=== PATIENT | male | born 1960 | race Caucasian/White ===

== ENCOUNTER 2016-12-23 15:16 | Inpatient (IN) | payer SELFPAY ==
[~2016-12-23] VITALS: Ht 175.3 cm; Wt 66.9 kg
[2016-12-23] MEDS: NITROGLYCERIN SUBLINGUAL 0.4 MG BOTTLE OF 25. SL PRN ×2 (16:26→16:41)
--- NOTE | 2016-12-23 16:27 | PHYS DOC ---
Past Medical History Past Medical History: Anxiety, COPD, Liver Disease, Seizure, Other Additional Past Medical Histor: IV drug user Past Surgical History: Other Additional Past Surgical Histo: hernia, carpal tunnel, facial - mult plates L face Additional Information: 5-6 per day Alcohol Use: Sober Additional Information: x30 days Drug Use: None Adult General Chief Complaint Chief Complaint: CHEST PAIN HPI HPI Patient is a 56 year old male who presents with chest pain and SOB. Patient reports for the past 3 days he has been having L side chest pain that he describes as "like someone is punching me" and like "something sitting on my chest". He also reports SOB and says recently he in unable to walk any significant distance without stopping to rest. Patient says he ran out of both his pain meds and "heart pills" one week ago, but does not know exactly what medication he was taking. He denies prior cardiac disease other than a "valve problem". He was given 4 baby ASA en route by EMS. Has not taken anything for pain. No prior similar episodes. He is a long-time smoker. Review of Systems Review of Systems Constitutional: Denies fever or chills Eyes: Denies change in visual acuity or eye pain HENT: Denies nasal congestion or sore throat Respiratory: Shortness of breath Cardiovascular: L side chest pain/pressure, decreased exercise tolerance GI: Denies abdominal pain, nausea, vomiting, bloody stools or diarrhea : Denies dysuria or hematuria Musculoskeletal: Denies back pain or joint pain Integument: Denies rash or skin lesions Neurologic: Denies headache, focal weakness or sensory changes Current Medications Current Medications Current Medications Medications (Trade) Dose Ordered Sig/Arcadio Start Time Stop Time Status Last Admin Dose Admin Acetaminophen (Tylenol) 650 mg PRN Q6HRS PRN 12/23/16 18:45 Morphine Sulfate 2 mg PRN Q2HR PRN 12/23/16 18:45 12/24/16 18:44 Nitroglycerin (Nitrostat) 0.4 mg PRN Q5MIN PRN 12/23/16 15:45 12/24/16 15:44 12/23/16 16:41 0.4 MG Ondansetron HCl (Zofran) 4 mg PRN Q6HRS PRN 12/23/16 18:45 Allergies Allergies Allergies Coded Allergies Type Severity Reaction Last Updated Verified Penicillins Allergy Intermediate 12/23/16 Yes codeine Allergy Intermediate 12/23/16 Yes Physical Exam Physical Exam Constitutional: Well developed, well nourished, no acute distress, non-toxic appearance HENT: Normocephalic, atraumatic, bilateral external ears normal Eyes: EOMI, conjunctiva normal, no discharge Neck: Normal range of motion, no stridor Cardiovascular: Heart rate normal, regular rhythm, no murmur Lungs & Thorax: Bilateral breath sounds clear to auscultation Abdomen: Bowel sounds normal, soft, non-distended, no TTP Skin: Warm, dry, no erythema, no rash Extremities: No obvious deformity, no edema Neurologic: Alert and oriented X 3, no gross deficits noted Current Patient Data Vital Signs Vital Signs Date Time Temp Pulse Resp B/P Pulse Ox O2 Delivery O2 Flow Rate FiO2 12/23/16 18:57 Room Air 12/23/16 18:52 84 21 127/84 98 12/23/16 15:30 98.4 98.4 Lab Values Laboratory Tests Test 12/23/16 16:20 12/23/16 17:25 White Blood Count 11.9x10^3/uL (4.0-11.0) H Red Blood Count 4.68x10^6/uL (4.30-5.70) Hemoglobin 14.8g/dL (13.0-17.5) Hematocrit 44.4% (39.0-53.0) Mean Corpuscular Volume 95fL (79-100) Mean Corpuscular Hemoglobin 32pg (25-35) Mean Corpuscular Hemoglobin Concent 33g/dL (31-37) Red Cell Distribution Width 12.8% (11.5-14.5) Platelet Count 157x10^3/uL (140-400) Neutrophils (%) (Auto) 62% (31-73) Lymphocytes (%) (Auto) 12% (24-48) L Monocytes (%) (Auto) 14% (0-9) H Eosinophils (%) (Auto) 12% (0-3) H Basophils (%) (Auto) 1% (0-3) Neutrophils # (Auto) 7.3x10^3uL (1.8-7.7) Lymphocytes # (Auto) 1.4x10^3/uL (1.0-4.8) Monocytes # (Auto) 1.6x10^3/uL (0.0-1.1) H Eosinophils # (Auto) 1.5x10^3/uL (0.0-0.7) H Basophils # (Auto) 0.1x10^3/uL (0.0-0.2) Sodium Level 129mmol/L (136-145) L Potassium Level 3.9mmol/L (3.5-5.1) Chloride Level 90mmol/L (98-107) L Carbon Dioxide Level 31mmol/L (21-32) Anion Gap 8 (6-14) Blood Urea Nitrogen 7mg/dL (8-26) L Creatinine 0.6mg/dL (0.7-1.3) L Estimated GFR (Cockcroft-Gault) 139.4 Glucose Level 115mg/dL (70-99) H Calcium Level 9.2mg/dL (8.5-10.1) Creatine Kinase 30U/L (39-308) L Creatine Kinase MB (Mass) < 0.5ng/mL (0.0-3.6) Creatine Kinase MB Relative Index 1.7% (0-4) Troponin I Quantitative < 0.017ng/mL (0.000-0.055) GK-Oez-C-Type Natriuretic Peptide 65pg/mL (0-124) Urine Opiates Screen Neg (NEG) Urine Methadone Screen Neg (NEG) Urine Barbiturates Neg (NEG) Urine Phencyclidine Screen Neg (NEG) Urine Amphetamine/Methamphetamine Neg (NEG) Urine Benzodiazepines Screen Neg (NEG) Urine Cocaine Screen Neg (NEG) Urine Cannabinoids Screen Neg (NEG) Urine Ethyl Alcohol Neg (NEG) Laboratory Tests 12/23/16 16:20 Laboratory Tests 12/23/16 16:20 EKG EKG EKG (my read): sinus rhythm, rate 96, normal axis, intervals wnl, no acute ischemic changes Radiology/Procedures Radiology/Procedures CXR: Impression: Radiographically normal chest. Course & Med Decision Making Course & Med Decision Making Pertinent Labs and Imaging studies reviewed. (See chart for details) Patient is 56 year old male who presents with chest pain, SOB. Symptoms concerning for ACS. Will check EKG, CXR, labs. Already given ASA by EMS, will give nitro for pain relief (with subsequent improvement in pain). EKG ok per my read. CXR results as above. Labs notable for hyponatremia, hypochloremia, mild leukocytosis. Troponin wnl. Discussed results with patient. Discussed with Dr. Flores, will admit under her care for further evaluation and treatment. Dragon Disclaimer Dragon Disclaimer This electronic medical record was generated, in whole or in part, using a voice recognition dictation system. Departure Departure Impression: Primary Impression: Chest pain Additional Impressions: SOB (shortness of breath) Hyponatremia Disposition: 09 ADMITTED INPATIENT Admitting Physician: Arnaud Flores Condition: STABLE Problem Qualifiers BILLY GONZALEZ MD Dec 23, 2016 16:27
[2016-12-23 16:29] LABS: BASO # 0.1 x10^3/uL (0.0-0.2); BASO % 1 % (0-3); EOS % 12 % (0-3); HEMATOCRIT 44.4 % (39.0-53.0); HEMOGLOBIN 14.8 g/dL (13.0-17.5); LYMPH # 1.4 x10^3/uL (1.0-4.8); LYMPH % 12 % (24-48); MEAN CORPUSCULAR HEMOGLOBIN 32 pg (25-35); MEAN CORPUSCULAR HGB CONC 33 g/dL (31-37); MEAN CORPUSCULAR VOLUME 95 fL (79-100); MONO % 14 % (0-9); NEUT % 62 % (31-73); PLATELET COUNT 157 x10^3/uL (140-400); RED BLOOD COUNT 4.68 x10^6/uL (4.30-5.70); RED CELL DISTRIBUTION WIDTH 12.8 % (11.5-14.5); WHITE BLOOD COUNT 11.9 x10^3/uL (4.0-11.0)
[2016-12-23 16:38] LABS: CALCIUM 9.2 mg/dL (8.5-10.1); CREATININE 0.6 mg/dL (0.7-1.3); GFR 139.4; POTASSIUM 3.9 mmol/L (3.5-5.1)
--- NOTE | 2016-12-23 16:44 | RAD ---
Exam performed: 2 views of the chest. Indication: chest pain, SOB, r/o acute process Date of Service:12/23/2016 2:00 AM . Comparison : None available. Findings: PA and lateral radiographs of the chest reveal a normal cardiomediastinal contour. The lungs are clear. No pleural fluid is seen. The visualized osseous structures are unremarkable. Impression: Radiographically normal chest.
[2016-12-23] MEDS ORDERED: ACETAMINOPHEN 500 MG TABLET PO ONE (16:45)
[2016-12-23] MEDS ORDERED: ONDANSETRON PF 4 MG/2 ML VIAL. IV PRN ×2 (18:45)
[2016-12-23] MEDS ORDERED: ACETAMINOPHEN 325 MG TABLET. PO PRN ×2 (18:45)
[2016-12-23] MEDS ORDERED: MORPHINE SULFATE 2 MG/ML DISP.SYRIN. IV PRN (18:45)
--- NOTE | 2016-12-23 18:58 | PDOC1 ---
History and Physical Date of Admission Date of Admission 12/23/16 Identification/Chief Complaint Chief Complaint chest pain Problems: Source Source: Chart review, Patient History of Present Illness History of Present Illness HPI HPI Patient is a 56 year old male who presents with chest pain for a few days. poor historian. He usually goes to [facility]. He said about 1 month ago, he was admitted for sob, chest pain and was found left rib fx. He also said he might had some CA before wo stents. He said this chest pain is different, gets worse, sharp. radiating to left arm, with diaphoresis, sob, no N/V, no fever, chills, no abd pain. Patient says he ran out of both his pain meds and "heart pills" one week ago, but does not know exactly what medication he was taking. He was given 4 baby ASA en route by EMS. Has not taken anything for pain. No prior similar episodes. He is a long-time smoker, quit for 1month. also had seizure 2 weeks ago. Past Medical History Past Medical History Anxiety, COPD, Liver Disease, Seizure, Other Additional Past Medical Histor: IV drug user Past Surgical History: Other Past Surgical History Past Surgical History hernia, carpal tunnel, facial - mult plates L face Family History Family History: Hypertension Social History Smoke: Quit ALCOHOL: social Drugs: None Current Problem List Problem List Problems Medical Problems: (1) Chest pain Status: Acute (2) Hyponatremia Status: Acute (3) SOB (shortness of breath) Status: Acute Current Medications Current Medications Current Medications Medications (Trade) Dose Ordered Sig/Arcadio Start Time Stop Time Status Last Admin Dose Admin Acetaminophen (Tylenol) 650 mg PRN Q4HRS PRN 12/23/16 18:45 12/24/16 18:44 UNV Morphine Sulfate 4 mg 1X ONCE 12/23/16 18:45 12/23/16 18:46 UNV Nitroglycerin (Nitrostat) 0.4 mg PRN Q5MIN PRN 12/23/16 15:45 12/24/16 15:44 12/23/16 16:41 0.4 MG Ondansetron HCl (Zofran) 4 mg PRN Q8HRS PRN 12/23/16 18:45 12/24/16 18:44 UNV Allergies Allergies Allergies Coded Allergies Type Severity Reaction Last Updated Verified Penicillins Allergy Intermediate 12/23/16 Yes codeine Allergy Intermediate 12/23/16 Yes ROS Review of System CONSTITUTIONAL: No fever or chills EYES: No recent changes SKIN: No rash or itching CARDIOVASCULAR: No chest pain, syncope, palpitations, or edema RESPIRATORY: No SOB or cough GASTROINTESTINAL: No nausea, vomiting or abdominal pain NEUROLOGICAL: No headaches or weakness ENDOCRINE: No cold or heat intolerance GENITOURINARY: No urgency or frequency of urination MUSCULOSKELETAL: No back pain or joint pain LYMPHATICS: No enlarged lymph nodes PSYCHIATRIC: No anxiety or depression Physical Exam Physical Exam GEN.: No apparent distress. Alert and oriented. poor hygiene. HEENT: Head is normocephalic, atraumatic NECK: Supple. LUNGS: severe decreased bs. left chest wall tenderness, severe. HEART: RRR, S1, S2 present. Peripheral pulses intact ABDOMEN: Soft, nontender. Positive bowel sounds. EXTREMITIES: Without any cyanosis. NEUROLOGIC: Normal speech, normal tone PSYCHIATRIC: Normal affect, normal mood. SKIN: No ulcerations Vitals Vitals Vital Signs Date Time Temp Pulse Resp B/P Pulse Ox O2 Delivery O2 Flow Rate FiO2 12/23/16 16:41 104 146/95 12/23/16 15:30 98.4 26 99 Room Air 98.4 Labs Labs Laboratory Tests Test 12/23/16 16:20 White Blood Count 11.9x10^3/uL (4.0-11.0) Red Blood Count 4.68x10^6/uL (4.30-5.70) Hemoglobin 14.8g/dL (13.0-17.5) Hematocrit 44.4% (39.0-53.0) Mean Corpuscular Volume 95fL (79-100) Mean Corpuscular Hemoglobin 32pg (25-35) Mean Corpuscular Hemoglobin Concent 33g/dL (31-37) Red Cell Distribution Width 12.8% (11.5-14.5) Platelet Count 157x10^3/uL (140-400) Neutrophils (%) (Auto) 62% (31-73) Lymphocytes (%) (Auto) 12% (24-48) Monocytes (%) (Auto) 14% (0-9) Eosinophils (%) (Auto) 12% (0-3) Basophils (%) (Auto) 1% (0-3) Neutrophils # (Auto) 7.3x10^3uL (1.8-7.7) Lymphocytes # (Auto) 1.4x10^3/uL (1.0-4.8) Monocytes # (Auto) 1.6x10^3/uL (0.0-1.1) Eosinophils # (Auto) 1.5x10^3/uL (0.0-0.7) Basophils # (Auto) 0.1x10^3/uL (0.0-0.2) Sodium Level 129mmol/L (136-145) Potassium Level 3.9mmol/L (3.5-5.1) Chloride Level 90mmol/L (98-107) Carbon Dioxide Level 31mmol/L (21-32) Anion Gap 8 (6-14) Blood Urea Nitrogen 7mg/dL (8-26) Creatinine 0.6mg/dL (0.7-1.3) Estimated GFR (Cockcroft-Gault) 139.4 Glucose Level 115mg/dL (70-99) Calcium Level 9.2mg/dL (8.5-10.1) Troponin I Quantitative < 0.017ng/mL (0.000-0.055) Laboratory Tests Test 12/23/16 16:20 White Blood Count 11.9x10^3/uL (4.0-11.0) Red Blood Count 4.68x10^6/uL (4.30-5.70) Hemoglobin 14.8g/dL (13.0-17.5) Hematocrit 44.4% (39.0-53.0) Mean Corpuscular Volume 95fL (79-100) Mean Corpuscular Hemoglobin 32pg (25-35) Mean Corpuscular Hemoglobin Concent 33g/dL (31-37) Red Cell Distribution Width 12.8% (11.5-14.5) Platelet Count 157x10^3/uL (140-400) Neutrophils (%) (Auto) 62% (31-73) Lymphocytes (%) (Auto) 12% (24-48) Monocytes (%) (Auto) 14% (0-9) Eosinophils (%) (Auto) 12% (0-3) Basophils (%) (Auto) 1% (0-3) Neutrophils # (Auto) 7.3x10^3uL (1.8-7.7) Lymphocytes # (Auto) 1.4x10^3/uL (1.0-4.8) Monocytes # (Auto) 1.6x10^3/uL (0.0-1.1) Eosinophils # (Auto) 1.5x10^3/uL (0.0-0.7) Basophils # (Auto) 0.1x10^3/uL (0.0-0.2) Sodium Level 129mmol/L (136-145) Potassium Level 3.9mmol/L (3.5-5.1) Chloride Level 90mmol/L (98-107) Carbon Dioxide Level 31mmol/L (21-32) Anion Gap 8 (6-14) Blood Urea Nitrogen 7mg/dL (8-26) Creatinine 0.6mg/dL (0.7-1.3) Estimated GFR (Cockcroft-Gault) 139.4 Glucose Level 115mg/dL (70-99) Calcium Level 9.2mg/dL (8.5-10.1) Troponin I Quantitative < 0.017ng/mL (0.000-0.055) VTE Prophylaxis Ordered VTE Prophylaxis Devices: Yes VTE Pharmacological Prophylaxi: Yes Assessment/Plan Assessment/Plan 1. chest pain, need to rule out unstable angina 2. recent left rib fx 3. COPD 4. h/o seizure 5. anxiety 6. h/o liver dz? 7. h/o iv drug user 8. previous smoker, quit 1month plan: 1. card consult 2. cycle CE, ECHO, tsh, lipid panel need to know home meds 3. asa daily, add duoneb for now dvt ppx left rib XR to rule out fx drug tox AN PHILLIPS MD Dec 23, 2016 18:58
[2016-12-23] MEDS ORDERED: ALBUTEROL SULFATE 2.5 MG/3 ML NEBU. NEB PRN (19:00)
[2016-12-23] MEDS ORDERED: ASPIRIN 325 MG TABLET PO ONE (19:00)
[2016-12-23] MEDS ORDERED: LORAZEPAM 2 MG/ML VIAL IV PRN (19:00)
[2016-12-23] MEDS ORDERED: hydrALAZINE 20 MG/ML VIAL. IVP PRN (19:00)
[2016-12-23] MEDS ORDERED: MORPHINE SULFATE 4 MG/ML DISP.SYRIN. IV ONE (19:00)
[2016-12-23] MEDS ORDERED: IV NORMAL SALINE 1000ML BAG 1,000 ML IV ONE (19:00)
[2016-12-23 19:07] LABS: BARBITURATES NEG (NEG); BENZODIAZEPINES NEG (NEG); CANNABINOIDS NEG (NEG); COCAINE NEG (NEG); METHADONE NEG (NEG); OPIATES NEG (NEG); PHENCYCLIDINE NEG (NEG)
[2016-12-23 19:13] LABS: ETHANOL, URINE NEG (NEG)
[2016-12-23 19:43] LABS: CKMB INDEX 1.7 % (0-4); CKMB MASS < 0.5 ng/mL (0.0-3.6); CREATINE KINASE 30 U/L (39-308)
--- NOTE | 2016-12-23 19:54 | ACF ---
Admission Forms Criteria CHEST PAIN Clinical Indications for Admission to Inpatient Care (Place 'X' for any and all applicable criteria): Admission is indicated for chest pain and ANY ONE of the following(1)(2)(3)(4)(5 ): [ ]I. Angina with acute coronary syndrome (Also use Myocardial Infarction or Angina guideline) [ ]II. Hemodynamic instability [ ]III. Angina needing acute intervention as indicated by ALL of the following( 11)(12): [ ]a) Unstable angina is present as indicated by angina that is ANY ONE of the following: [ ]i) New onset [ ]ii) Nocturnal [ ]iii) Prolonged at rest [ ]iv) Progressive [ ]b) Angina warrants acute intervention as indicated by ANY ONE of the following: [ ]i) Recurrent angina (e.g, not responding as previously to treatment) [ ]ii) Angina at rest or with low-level activities despite initial medical therapy [ ]iii) New or presumably new ST-segment depression on ECG [ ]iv) Signs or symptoms of heart failure (eg, dyspnea, pulmonary edema) [ ]v) New or worsening mitral regurgitation [ ]vi) Hemodynamic instability [ ]vii) Dangerous arrhythmia (eg, sustained ventricular tachycardia) [ ]viii) History of percutaneous coronary intervention within 6 months [ ]ix) History of coronary artery bypass graft surgery [ ]x) HUMBLE risk score of 2 or greater[A] [ ]xi) History of Diabetes(14) [ ]xii) High-risk cardiac ischemia findings on noninvasive testing (e.g, echocardiogram, treadmill testing, nuclear scan) [ ]xiii) Chronic renal insufficiency (ie, estimated GFR less than 60 mL/min/1.732m) [ ]xiv) Left ventricular ejection fraction less than 40% [ ]IV. Evidence of OK (eg, cardiac biomarkers positive, ST-segment elevation on ECG) also use Myocardial Infarction Criteria Form. [ ]V. Pulmonary edema [ ]. Respiratory distress [ ]VII. Chest pain indicative of serious diagnosis other than coronary artery disease (eg, aortic dissection) [ ]VIII. Contraindications and/or Inappropriate clinical situations for Observational Care in patients with Chest Pain, when ANY ONE of the following is required: [ ]a) Patient with risk factor for pulmonary embolism, acute coronary syndrome and myocardial infarction (18) [ ]b) Patient with Pulmonary embolism require an average LOS of 4.3 days, therefore emergency department observation management is inappropriate 18,23 [ ]c) Painful condition/s in the elderly, have the highest rate of recidivism after emergency department observation management (10.8%) 20,21,22 [ ]d) Elevated cardiac biomarker requires intensive and exhaustive care (19) [ X]IX. General contraindications and/or Inappropriate clinical situations for Observational Care in patients with Chest Pain, when ANY ONE of the following is required: [X ]a) Prediction of prolongation of LOS based on ANY ONE of the following may be considered as a contraindication for observational care 2, 3, 4, 5, 6, 7, 8, 9, 10, 11 [ ]i) Age > 65 yrs. [ ]ii) Patient arriving by ambulance [ ]iii) Patient with high acuity [X ]iv) Patient requiring vital sign monitoring [ X]v) Patient on IV medication [ ]b) Systolic blood pressures 180mmHg 3,12 [ ]c) Patient with altered mental status including delirium and other alteration of consciousness, (3) [ ]d) Patient whose discharge disposition will be to a retirement home or rehabilitation home should not be managed in Emergency Department Observation Unit. CMS rule requires 3 days hospital stay before such placement. 3,13 [ ]e) Patient with failure to thrive due to broad array of etiologies 3,16,17 [ ]f) Inability to ambulate 3,14 Extended stay beyond goal length of stay may be needed for (1)(28): [ ]a) Specific condition diagnosed after evaluation (eg, pulmonary embolism, aortic dissection) [ ]b) Unstable angina [ ]c) Continued suspicion of acute coronary syndrome with inability to complete needed cardiac evaluation (eg, patient clinically unable to undergo stress testing) [ ]d) Myocardial infarction (Contents from ANGINA and CHEST PAIN clinical indications for admission to inpatient care have been integrated in this form) The original [facility] content created by [employer] has been revised. The portions of the content which have been revised are identified through the use of italic text or in bold, and [facility] has neither reviewed nor approved the modified material. All other unmodified content is copyright [facility]. Please see references footnoted in the original [facility])[3] [employer] edition 2016 Admission Criteria Met?: Yes MORIAH HARVEY Dec 23, 2016 19:54
[2016-12-23 21:00] VITALS: BP 144/93
[2016-12-23] MEDS: IPRATRPIUM/ALBUTEROL 0.5/2.5MG 3 ML NEBU. NEB SCH (21:04)
[2016-12-23] MEDS ORDERED: DIPHENHYDRAMINE HCL 25 MG CAPSULE PO PRN (22:15)
[2016-12-23 22:46] VITALS: BP 112/59
[2016-12-23] MEDS: TRAMADOL 50 MG TABLET. PO PRN (22:50)
[2016-12-23] MEDS: GUAIFENESIN DM 200MG/20MG 10 ML SYRUP. PO PRN (22:50)
[2016-12-23 23:59] VITALS: BP_SYST 130; BP_SYST 142; BP_DIAS 87; BP_DIAS 90
[2016-12-24 03:59] VITALS: BP 128/85
[2016-12-24] MEDS: GUAIFENESIN DM 200MG/20MG 10 ML SYRUP. PO PRN ×3 (05:23→18:21)
[2016-12-24] MEDS: TRAMADOL 50 MG TABLET. PO PRN ×3 (05:23→18:21)
[2016-12-24 06:56] LABS: BASO # 0.1 x10^3/uL (0.0-0.2); BASO % 1 % (0-3); EOS % 31 % (0-3); HEMATOCRIT 48.2 % (39.0-53.0); LYMPH # 1.5 x10^3/uL (1.0-4.8); LYMPH % 15 % (24-48); MEAN CORPUSCULAR HEMOGLOBIN 32 pg (25-35); MEAN CORPUSCULAR HGB CONC 33 g/dL (31-37); MEAN CORPUSCULAR VOLUME 96 fL (79-100); MONO % 13 % (0-9); NEUT % 40 % (31-73); PLATELET COUNT 170 x10^3/uL (140-400); RED CELL DISTRIBUTION WIDTH 12.9 % (11.5-14.5); WHITE BLOOD COUNT 10.3 x10^3/uL (4.0-11.0)
[2016-12-24 07:00] VITALS: BP 111/79
[2016-12-24 07:00] LABS: CALCIUM 9.8 mg/dL (8.5-10.1); CREATININE 0.6 mg/dL (0.7-1.3); GFR 139.4; POTASSIUM 4.2 mmol/L (3.5-5.1)
[2016-12-24] MEDS: IPRATRPIUM/ALBUTEROL 0.5/2.5MG 3 ML NEBU. NEB SCH ×4 (07:31→21:04)
[2016-12-24 08:31] LABS: % BASOS 3 % (0-3); % EOS 35 % (0-5)
[2016-12-24 08:32] LABS: PLT ESTIMATE ADEQUATE (ADEQUATE)
[2016-12-24] MEDS: ASPIRIN 81 MG TAB.CHEW PO SCH (08:55)
[2016-12-24] MEDS: ENOXAPARIN 40 MG/0.4 ML DISP.SYRIN. SQ SCH (08:55)
[2016-12-24 11:01] VITALS: BP 110/81
--- NOTE | 2016-12-24 11:30 | PDOC2 ---
CONSULT Date of Consult Date of Consult DATE: 12/24/16 TIME: 11:21 Reason for Consult Reason for Consult: Chest pain Referring Physician Referring Physician: Dr. Flores Identification/Chief Complaint Chief Complaint Chest pain Source Source: Patient History of Present Illness Reason for Visit: The patient is a 56-year-old male who was admitted through the emergency room with episodes of chest discomfort and shortness of breath. The patient's initial EKG as read by the emergency room physician shows a sinus rhythm with no ischemic EKG changes. Troponin has been normal 2. The patient is feeling better. He is a limited historian. He has been followed at [facility] in the past. He denies any history of myocardial infarction or coronary stent placement. He states that he has some type of valvular abnormality. He discontinued his medications one to 2 weeks ago. Past Medical History Cardiovascular: HTN, Other (possible cardiac valve problem.) Pulmonary: COPD CENTRAL NERVOUS SYSTEM: Seizure Hepatobiliary: Other (unspecified liver disease) Past Surgical History Past Surgical History: Other (carpal tunnel and facial surgery) Family History Family History: Hypertension Social History 1 pack per day ALCOHOL: social Drugs: None, Other (possible past IV drug use. None recently.) Current Problem List Problem List Problems Medical Problems: (1) Chest pain Status: Acute (2) Hyponatremia Status: Acute (3) SOB (shortness of breath) Status: Acute Current Medications Current Medications Current Medications Nitroglycerin (Nitrostat) 0.4 mg PRN Q5MIN PRN SL CP RATING > 1/10 Last administered on 12/23/16 16:41; Start 12/23/16 at 15:45; Stop 12/24/16 at 15:44 Acetaminophen (Tylenol) 1,000 mg 1X ONCE PO Last administered on 12/23/16 16: 53; Start 12/23/16 at 16:45; Stop 12/23/16 at 16:47; Status DC Ondansetron HCl (Zofran) 4 mg PRN Q8HRS PRN IV NAUSEA/VOMITING; Start 12/23/16 at 18:45; Stop 12/24/16 at 18:44; Status UNV Morphine Sulfate 2 mg PRN Q2HR PRN IV PAIN; Start 12/23/16 at 18:45; Stop at 18:44 Acetaminophen (Tylenol) 650 mg PRN Q4HRS PRN PO FEVER; Start 12/23/16 at 18:45; Stop 12/24/16 at 18:44; Status UNV Morphine Sulfate 4 mg 1X ONCE IV Last administered on 12/23/16 18:57; Start at 19:00; Stop 12/23/16 at 19:01; Status DC Acetaminophen (Tylenol) 650 mg PRN Q6HRS PRN PO FEVER Last administered on 04:03; Start 12/23/16 at 18:45 Ondansetron HCl (Zofran) 4 mg PRN Q6HRS PRN IV NAUSEA; Start 12/23/16 at 18:45 Enoxaparin Sodium 40 mg 40 mg DAILY SQ Last administered on 12/24/16 08:55; Start 12/24/16 at 09:00 Sodium Chloride (Iv Sodium Chloride 0.9% 1000ml Bag) 1,000 ml @ 75 mls/hr 1X ONCE IV Last administered on 12/23/16 18:56; Start 12/23/16 at 19:00; Stop at 08:19; Status DC Aspirin (John Aspirin) 325 mg 1X ONCE PO ; Start 12/23/16 at 19:00; Stop at 19:00; Status DC Aspirin (Children'S Aspirin) 81 mg DAILY PO Last administered on 12/24/16 08:55 ; Start 12/24/16 at 09:00 Hydralazine HCl (Apresoline) 10 mg PRN Q4HRS PRN IVP HYPERTENSION, SEE COMMENTS ; Start 12/23/16 at 19:00 Tramadol HCl (Ultram) 50 mg PRN Q6HRS PRN PO PAIN Last administered on 05:23; Start 12/23/16 at 19:00 Lorazepam (Ativan) 2 mg PRN Q4HRS PRN IV ANXIETY / AGITATION; Start 12/23/16 at 19:00 Albuterol/ Ipratropium (Duoneb) 3 ml RTQID NEB Last administered on 12/24/16 07 :31; Start 12/23/16 at 20:00 Albuterol Sulfate (Ventolin Neb Soln) 2.5 mg PRN Q4HRS PRN NEB SHORTNESS OF BREATH; Start 12/23/16 at 19:00 Diphenhydramine HCl (Benadryl) 25 mg PRN BID PRN PO INSOMNIA Last administered on 12/23/16 22:50; Start 12/23/16 at 22:15 Guaifenesin (Robitussin Dm) 10 ml PRN Q6HRS PRN PO COUGH Last administered on 05:23; Start 12/23/16 at 22:15 Allergies Allergies: Coded Allergies: Penicillins (Verified Allergy, Intermediate, 12/23/16) codeine (Verified Allergy, Intermediate, 12/23/16) ROS Respiratory: YES: Shortness of breath Cardiovascular: yes Chest Pain Physical Exam General: mild distress HEENT: Atraumatic Lungs: Other (mildly decreased breath sounds) Heart: Other (regular rhythm with a 2/6 systolic murmur) Abdomen: Normal bowel sounds Vitals VITALS Vital Signs Date Time Temp Pulse Resp B/P Pulse Ox O2 Delivery O2 Flow Rate FiO2 12/24/16 11:01 97.4 91 18 110/81 97 Room Air 97.4 12/23/16 22:46 7.0 Labs Labs Laboratory Tests Test 12/23/16 16:20 12/23/16 17:25 12/24/16 01:00 12/24/16 06:35 White Blood Count 11.9x10^3/uL (4.0-11.0) 10.3x10^3/uL (4.0-11.0) Red Blood Count 4.68x10^6/uL (4.30-5.70) 5.00x10^6/uL (4.30-5.70) Hemoglobin 14.8g/dL (13.0-17.5) 16.0g/dL (13.0-17.5) Hematocrit 44.4% (39.0-53.0) 48.2% (39.0-53.0) Mean Corpuscular Volume 95fL (79-100) 96fL (79-100) Mean Corpuscular Hemoglobin 32pg (25-35) 32pg (25-35) Mean Corpuscular Hemoglobin Concent 33g/dL (31-37) 33g/dL (31-37) Red Cell Distribution Width 12.8% (11.5-14.5) 12.9% (11.5-14.5) Platelet Count 157x10^3/uL (140-400) 170x10^3/uL (140-400) Neutrophils (%) (Auto) 62% (31-73) 40% (31-73) Lymphocytes (%) (Auto) 12% (24-48) 15% (24-48) Monocytes (%) (Auto) 14% (0-9) 13% (0-9) Eosinophils (%) (Auto) 12% (0-3) 31% (0-3) Basophils (%) (Auto) 1% (0-3) 1% (0-3) Neutrophils # (Auto) 7.3x10^3uL (1.8-7.7) 4.2x10^3uL (1.8-7.7) Lymphocytes # (Auto) 1.4x10^3/uL (1.0-4.8) 1.5x10^3/uL (1.0-4.8) Monocytes # (Auto) 1.6x10^3/uL (0.0-1.1) 1.3x10^3/uL (0.0-1.1) Eosinophils # (Auto) 1.5x10^3/uL (0.0-0.7) 3.2x10^3/uL (0.0-0.7) Basophils # (Auto) 0.1x10^3/uL (0.0-0.2) 0.1x10^3/uL (0.0-0.2) Sodium Level 129mmol/L (136-145) 137mmol/L (136-145) Potassium Level 3.9mmol/L (3.5-5.1) 4.2mmol/L (3.5-5.1) Chloride Level 90mmol/L (98-107) 99mmol/L (98-107) Carbon Dioxide Level 31mmol/L (21-32) 32mmol/L (21-32) Anion Gap 8 (6-14) 6 (6-14) Blood Urea Nitrogen 7mg/dL (8-26) 6mg/dL (8-26) Creatinine 0.6mg/dL (0.7-1.3) 0.6mg/dL (0.7-1.3) Estimated GFR (Cockcroft-Gault) 139.4 139.4 Glucose Level 115mg/dL (70-99) 93mg/dL (70-99) Calcium Level 9.2mg/dL (8.5-10.1) 9.8mg/dL (8.5-10.1) Creatine Kinase 30U/L (39-308) Creatine Kinase MB (Mass) < 0.5ng/mL (0.0-3.6) Creatine Kinase MB Relative Index 1.7% (0-4) Troponin I Quantitative < 0.017ng/mL (0.000-0.055) < 0.017ng/mL (0.000-0.055) < 0.017ng/mL (0.000-0.055) MP-Bge-S-Type Natriuretic Peptide 65pg/mL (0-124) Urine Opiates Screen Neg (NEG) Urine Methadone Screen Neg (NEG) Urine Barbiturates Neg (NEG) Urine Phencyclidine Screen Neg (NEG) Urine Amphetamine/Methamphetamine Neg (NEG) Urine Benzodiazepines Screen Neg (NEG) Urine Cocaine Screen Neg (NEG) Urine Cannabinoids Screen Neg (NEG) Urine Ethyl Alcohol Neg (NEG) Segmented Neutrophils % 39% (35-66) Band Neutrophils % 1% (0-9) Lymphocytes % 12% (24-48) Atypical Lymphocytes % (Manual) 2% (0-0) Monocytes % 8% (0-10) Eosinophils % 35% (0-5) Basophils % 3% (0-3) Platelet Estimate Adequate (ADEQUATE) Triglycerides Level 36mg/dL (0-150) Cholesterol Level 118mg/dL (0-200) LDL Cholesterol, Calculated 75mg/dL (0-100) VLDL Cholesterol, Calculated 7mg/dL (0-40) HDL Cholesterol 36mg/dL (40-60) Cholesterol/HDL Ratio Thyroid Stimulating Hormone (TSH) 1.865uIU/mL (0.358-3.74) Laboratory Tests Test 12/23/16 16:20 12/23/16 17:25 12/24/16 01:00 12/24/16 06:35 White Blood Count 11.9x10^3/uL (4.0-11.0) 10.3x10^3/uL (4.0-11.0) Red Blood Count 4.68x10^6/uL (4.30-5.70) 5.00x10^6/uL (4.30-5.70) Hemoglobin 14.8g/dL (13.0-17.5) 16.0g/dL (13.0-17.5) Hematocrit 44.4% (39.0-53.0) 48.2% (39.0-53.0) Mean Corpuscular Volume 95fL (79-100) 96fL (79-100) Mean Corpuscular Hemoglobin 32pg (25-35) 32pg (25-35) Mean Corpuscular Hemoglobin Concent 33g/dL (31-37) 33g/dL (31-37) Red Cell Distribution Width 12.8% (11.5-14.5) 12.9% (11.5-14.5) Platelet Count 157x10^3/uL (140-400) 170x10^3/uL (140-400) Neutrophils (%) (Auto) 62% (31-73) 40% (31-73) Lymphocytes (%) (Auto) 12% (24-48) 15% (24-48) Monocytes (%) (Auto) 14% (0-9) 13% (0-9) Eosinophils (%) (Auto) 12% (0-3) 31% (0-3) Basophils (%) (Auto) 1% (0-3) 1% (0-3) Neutrophils # (Auto) 7.3x10^3uL (1.8-7.7) 4.2x10^3uL (1.8-7.7) Lymphocytes # (Auto) 1.4x10^3/uL (1.0-4.8) 1.5x10^3/uL (1.0-4.8) Monocytes # (Auto) 1.6x10^3/uL (0.0-1.1) 1.3x10^3/uL (0.0-1.1) Eosinophils # (Auto) 1.5x10^3/uL (0.0-0.7) 3.2x10^3/uL (0.0-0.7) Basophils # (Auto) 0.1x10^3/uL (0.0-0.2) 0.1x10^3/uL (0.0-0.2) Sodium Level 129mmol/L (136-145) 137mmol/L (136-145) Potassium Level 3.9mmol/L (3.5-5.1) 4.2mmol/L (3.5-5.1) Chloride Level 90mmol/L (98-107) 99mmol/L (98-107) Carbon Dioxide Level 31mmol/L (21-32) 32mmol/L (21-32) Anion Gap 8 (6-14) 6 (6-14) Blood Urea Nitrogen 7mg/dL (8-26) 6mg/dL (8-26) Creatinine 0.6mg/dL (0.7-1.3) 0.6mg/dL (0.7-1.3) Estimated GFR (Cockcroft-Gault) 139.4 139.4 Glucose Level 115mg/dL (70-99) 93mg/dL (70-99) Calcium Level 9.2mg/dL (8.5-10.1) 9.8mg/dL (8.5-10.1) Creatine Kinase 30U/L (39-308) Creatine Kinase MB (Mass) < 0.5ng/mL (0.0-3.6) Creatine Kinase MB Relative Index 1.7% (0-4) Troponin I Quantitative < 0.017ng/mL (0.000-0.055) < 0.017ng/mL (0.000-0.055) < 0.017ng/mL (0.000-0.055) PP-Lni-R-Type Natriuretic Peptide 65pg/mL (0-124) Urine Opiates Screen Neg (NEG) Urine Methadone Screen Neg (NEG) Urine Barbiturates Neg (NEG) Urine Phencyclidine Screen Neg (NEG) Urine Amphetamine/Methamphetamine Neg (NEG) Urine Benzodiazepines Screen Neg (NEG) Urine Cocaine Screen Neg (NEG) Urine Cannabinoids Screen Neg (NEG) Urine Ethyl Alcohol Neg (NEG) Segmented Neutrophils % 39% (35-66) Band Neutrophils % 1% (0-9) Lymphocytes % 12% (24-48) Atypical Lymphocytes % (Manual) 2% (0-0) Monocytes % 8% (0-10) Eosinophils % 35% (0-5) Basophils % 3% (0-3) Platelet Estimate Adequate (ADEQUATE) Triglycerides Level 36mg/dL (0-150) Cholesterol Level 118mg/dL (0-200) LDL Cholesterol, Calculated 75mg/dL (0-100) VLDL Cholesterol, Calculated 7mg/dL (0-40) HDL Cholesterol 36mg/dL (40-60) Cholesterol/HDL Ratio Thyroid Stimulating Hormone (TSH) 1.865uIU/mL (0.358-3.74) Images Images Chest x-ray with no acute changes. Assessment/Plan Assessment/Plan 1. Chest pain. Pain has improved. Patient is ruling out for myocardial infarction. History of nonspecific heart problems. We'll continue baseline medications. We'll complete rule out myocardial infarction. MPI testing tomorrow. 2. Heart murmur with a history of valvular disease. We'll check an echocardiogram. 3. Hypertension. Will restart baseline medications. 4. COPD. The patient has been strongly encouraged to discontinue smoking. Thank you for allowing us to participate in the care of your patient. VINCE SIMPSON MD Dec 24, 2016 11:29
--- NOTE | 2016-12-24 13:03 | RAD ---
Left rib series December 23, 2016 Clinical history: Left rib pain post cough. 2 AP and 2 oblique digital radiographs of the left ribs were obtained. Comparison is made to PA and lateral chest radiographs performed earlier today. Surgical clips overlie the apex of the left lung. The left lung is clear. No pneumothorax or pleural effusion is seen. No left-sided rib fracture is seen. Impression: No Left-sided rib fracture is seen.
--- NOTE | 2016-12-24 14:08 | PDOC ---
PROGRESS NOTES Chief Complaint Chief Complaint CP ASSESSMENT AND PLAN: 1. CP: ruled out for AMS by serial enzymes/EKG. appreciate Dr Frias's input. MPI in AM. Risk factors reviewed: no apparent HTN; lipids ok save for low HDL; quit smoking 1 mo ago, no DM 2. Hx heart problems NOS, with murmur: echo pending. 3. Recent left rib fx: not confirmed by rib films. pain is c/w chest wall pain, L axillary line. treat symptomatically 4. COPD: no acute issues. nebs PRN 5. Tobacco use: stes he quit 1 month ago 6. Multi-substance abuse: monitor for w/d sx. drug screen was neg 7. Hx seizure: ?related to (6.) 8. Prophylaxis: lovenox Vitals Vitals Vital Signs Date Time Temp Pulse Resp B/P Pulse Ox O2 Delivery O2 Flow Rate FiO2 12/24/16 13:00 Room Air 12/24/16 11:01 97.4 91 18 110/81 97 97.4 12/23/16 22:46 7.0 Physical Exam General: mild distress Heart: Other Abdomen: Normal bowel sounds Labs LABS Laboratory Tests Test 12/23/16 16:20 12/23/16 17:25 12/24/16 01:00 12/24/16 06:35 White Blood Count 11.9x10^3/uL (4.0-11.0) 10.3x10^3/uL (4.0-11.0) Red Blood Count 4.68x10^6/uL (4.30-5.70) 5.00x10^6/uL (4.30-5.70) Hemoglobin 14.8g/dL (13.0-17.5) 16.0g/dL (13.0-17.5) Hematocrit 44.4% (39.0-53.0) 48.2% (39.0-53.0) Mean Corpuscular Volume 95fL (79-100) 96fL (79-100) Mean Corpuscular Hemoglobin 32pg (25-35) 32pg (25-35) Mean Corpuscular Hemoglobin Concent 33g/dL (31-37) 33g/dL (31-37) Red Cell Distribution Width 12.8% (11.5-14.5) 12.9% (11.5-14.5) Platelet Count 157x10^3/uL (140-400) 170x10^3/uL (140-400) Neutrophils (%) (Auto) 62% (31-73) 40% (31-73) Lymphocytes (%) (Auto) 12% (24-48) 15% (24-48) Monocytes (%) (Auto) 14% (0-9) 13% (0-9) Eosinophils (%) (Auto) 12% (0-3) 31% (0-3) Basophils (%) (Auto) 1% (0-3) 1% (0-3) Neutrophils # (Auto) 7.3x10^3uL (1.8-7.7) 4.2x10^3uL (1.8-7.7) Lymphocytes # (Auto) 1.4x10^3/uL (1.0-4.8) 1.5x10^3/uL (1.0-4.8) Monocytes # (Auto) 1.6x10^3/uL (0.0-1.1) 1.3x10^3/uL (0.0-1.1) Eosinophils # (Auto) 1.5x10^3/uL (0.0-0.7) 3.2x10^3/uL (0.0-0.7) Basophils # (Auto) 0.1x10^3/uL (0.0-0.2) 0.1x10^3/uL (0.0-0.2) Sodium Level 129mmol/L (136-145) 137mmol/L (136-145) Potassium Level 3.9mmol/L (3.5-5.1) 4.2mmol/L (3.5-5.1) Chloride Level 90mmol/L (98-107) 99mmol/L (98-107) Carbon Dioxide Level 31mmol/L (21-32) 32mmol/L (21-32) Anion Gap 8 (6-14) 6 (6-14) Blood Urea Nitrogen 7mg/dL (8-26) 6mg/dL (8-26) Creatinine 0.6mg/dL (0.7-1.3) 0.6mg/dL (0.7-1.3) Estimated GFR (Cockcroft-Gault) 139.4 139.4 Glucose Level 115mg/dL (70-99) 93mg/dL (70-99) Calcium Level 9.2mg/dL (8.5-10.1) 9.8mg/dL (8.5-10.1) Creatine Kinase 30U/L (39-308) Creatine Kinase MB (Mass) < 0.5ng/mL (0.0-3.6) Creatine Kinase MB Relative Index 1.7% (0-4) Troponin I Quantitative < 0.017ng/mL (0.000-0.055) < 0.017ng/mL (0.000-0.055) < 0.017ng/mL (0.000-0.055) GU-Etg-L-Type Natriuretic Peptide 65pg/mL (0-124) Urine Opiates Screen Neg (NEG) Urine Methadone Screen Neg (NEG) Urine Barbiturates Neg (NEG) Urine Phencyclidine Screen Neg (NEG) Urine Amphetamine/Methamphetamine Neg (NEG) Urine Benzodiazepines Screen Neg (NEG) Urine Cocaine Screen Neg (NEG) Urine Cannabinoids Screen Neg (NEG) Urine Ethyl Alcohol Neg (NEG) Segmented Neutrophils % 39% (35-66) Band Neutrophils % 1% (0-9) Lymphocytes % 12% (24-48) Atypical Lymphocytes % (Manual) 2% (0-0) Monocytes % 8% (0-10) Eosinophils % 35% (0-5) Basophils % 3% (0-3) Platelet Estimate Adequate (ADEQUATE) Magnesium Level 1.7mg/dL (1.8-2.4) Triglycerides Level 36mg/dL (0-150) Cholesterol Level 118mg/dL (0-200) LDL Cholesterol, Calculated 75mg/dL (0-100) VLDL Cholesterol, Calculated 7mg/dL (0-40) HDL Cholesterol 36mg/dL (40-60) Cholesterol/HDL Ratio Thyroid Stimulating Hormone (TSH) 1.865uIU/mL (0.358-3.74) Review of Systems Review of Systems c/o L sided CP, persistin, worse with deep breathing or moving ALIDA RAMIREZ MD Dec 24, 2016 14:08
--- NOTE | 2016-12-24 14:48 | EKG ---
[facility] [address] [place] [address] Test Date: 2016-12-23 Test Time: 15:31:23 Pat Name: MERCY TITUS Department: Room: Gender: M [employer] Fe[employer]: : 1960 Requested By: BILLY GONZALEZ Order Number: [id number] Reading MD: Measurements Intervals [place] Rate: 96 P: 56 FL: 152 QRS: 42 QRSD: 80 T: 62 QT: 334 QTc: 423 Interpretive Statements SINUS RHYTHM LEFT ATRIAL ABNORMALITY QRS(T) CONTOUR ABNORMALITY CONSIDER ANTEROLATERAL MYOCARDIAL DAMAGE ABNORMAL ECG RI6.01 No previous ECG available for comparison
--- NOTE | 2016-12-24 14:51 | EKG ---
[facility] [address] [place] [address] Test Date: 2016-12-23 Test Time: 19:18:44 Pat Name: MERCY TITUS Department: Room: Gender: M [employer] Matcher: : 1960 Requested By: AN PHILLIPS Order Number: [id number] Reading MD: Measurements Intervals [place] Rate: 82 P: 59 TN: 158 QRS: 50 QRSD: 78 T: 60 QT: 362 QTc: 426 Interpretive Statements SINUS RHYTHM LEFT ATRIAL ABNORMALITY RI6.01 Unconfirmed report No previous ECG available for comparison
[2016-12-24 15:15] VITALS: BP 110/80
[2016-12-24 19:59] VITALS: BP 135/95
[2016-12-24 23:59] VITALS: BP 129/81
[2016-12-25 03:59] VITALS: BP 130/74
[2016-12-25 05:56] LABS: CALCIUM 9.3 mg/dL (8.5-10.1); CREATININE 0.6 mg/dL (0.7-1.3); GFR 139.4
[2016-12-25 07:00] VITALS: BP 117/82
[2016-12-25] MEDS: IPRATRPIUM/ALBUTEROL 0.5/2.5MG 3 ML NEBU. NEB SCH ×4 (07:28→19:35)
[2016-12-25] MEDS ORDERED: REGADENOSON 0.4 MG/5 ML DISP.SYRIN. IV ONE (09:30)
[2016-12-25] MEDS: GUAIFENESIN DM 200MG/20MG 10 ML SYRUP. PO PRN (11:38)
[2016-12-25] MEDS: TRAMADOL 50 MG TABLET. PO PRN (11:39)
[2016-12-25] MEDS: ENOXAPARIN 40 MG/0.4 ML DISP.SYRIN. SQ SCH (11:39)
[2016-12-25] MEDS: ASPIRIN 81 MG TAB.CHEW PO SCH (11:39)
[2016-12-25 11:44] VITALS: BP 135/86
--- NOTE | 2016-12-25 13:38 | PDOC ---
PROGRESS NOTES Subjective Subjective The patient is feeling better today. Objective Objective Vital Signs Date Time Temp Pulse Resp B/P Pulse Ox O2 Delivery O2 Flow Rate FiO2 12/25/16 12:40 Room Air 12/25/16 11:44 98.1 96 20 135/86 98 98.1 12/23/16 22:46 7.0 Intake and Output 12/25/16 07:00 Intake Total 1560 ml Output Total 4050 ml Balance -2490 ml Intake Oral 1560 ml Output Urine Total 4050 ml # Voids 4 Physical Exam Abdomen: Normal bowel sounds Heart: Regular rate General: No acute distress Lungs: Clear to auscultation Assessment Assessment Problems Medical Problems: (1) Chest pain Status: Acute (2) Hyponatremia Status: Acute (3) SOB (shortness of breath) Status: Acute 1. Chest pain. Pain has resolved. No evidence of acute infarction. Echocardiogram and MPI testing today. 2. Heart murmur with a history of valvular disease. We'll check an echocardiogram. 3. Hypertension. Improved. 4. COPD. The patient has been strongly encouraged to discontinue smoking. Comment Review of Relevant I have reviewed the following items eliceo (where applicable) has been applied. Labs Laboratory Tests Test 12/23/16 16:20 12/23/16 17:25 12/23/16 22:22 12/24/16 01:00 White Blood Count 11.9x10^3/uL (4.0-11.0) Red Blood Count 4.68x10^6/uL (4.30-5.70) Hemoglobin 14.8g/dL (13.0-17.5) Hematocrit 44.4% (39.0-53.0) Mean Corpuscular Volume 95fL (79-100) Mean Corpuscular Hemoglobin 32pg (25-35) Mean Corpuscular Hemoglobin Concent 33g/dL (31-37) Red Cell Distribution Width 12.8% (11.5-14.5) Platelet Count 157x10^3/uL (140-400) Neutrophils (%) (Auto) 62% (31-73) Lymphocytes (%) (Auto) 12% (24-48) Monocytes (%) (Auto) 14% (0-9) Eosinophils (%) (Auto) 12% (0-3) Basophils (%) (Auto) 1% (0-3) Neutrophils # (Auto) 7.3x10^3uL (1.8-7.7) Lymphocytes # (Auto) 1.4x10^3/uL (1.0-4.8) Monocytes # (Auto) 1.6x10^3/uL (0.0-1.1) Eosinophils # (Auto) 1.5x10^3/uL (0.0-0.7) Basophils # (Auto) 0.1x10^3/uL (0.0-0.2) Sodium Level 129mmol/L (136-145) Potassium Level 3.9mmol/L (3.5-5.1) Chloride Level 90mmol/L (98-107) Carbon Dioxide Level 31mmol/L (21-32) Anion Gap 8 (6-14) Blood Urea Nitrogen 7mg/dL (8-26) Creatinine 0.6mg/dL (0.7-1.3) Estimated GFR (Cockcroft-Gault) 139.4 Glucose Level 115mg/dL (70-99) Calcium Level 9.2mg/dL (8.5-10.1) Creatine Kinase 30U/L (39-308) Creatine Kinase MB (Mass) < 0.5ng/mL (0.0-3.6) Creatine Kinase MB Relative Index 1.7% (0-4) Troponin I Quantitative < 0.017ng/mL (0.000-0.055) < 0.017ng/mL (0.000-0.055) SI-Zuu-O-Type Natriuretic Peptide 65pg/mL (0-124) Urine Opiates Screen Neg (NEG) Urine Methadone Screen Neg (NEG) Urine Barbiturates Neg (NEG) Urine Phencyclidine Screen Neg (NEG) Urine Amphetamine/Methamphetamine Neg (NEG) Urine Benzodiazepines Screen Neg (NEG) Urine Cocaine Screen Neg (NEG) Urine Cannabinoids Screen Neg (NEG) Urine Ethyl Alcohol Neg (NEG) Nasal Screen MRSA (PCR) Negative (Negative) Test 12/24/16 06:35 12/25/16 05:10 White Blood Count 10.3x10^3/uL (4.0-11.0) Red Blood Count 5.00x10^6/uL (4.30-5.70) Hemoglobin 16.0g/dL (13.0-17.5) Hematocrit 48.2% (39.0-53.0) Mean Corpuscular Volume 96fL (79-100) Mean Corpuscular Hemoglobin 32pg (25-35) Mean Corpuscular Hemoglobin Concent 33g/dL (31-37) Red Cell Distribution Width 12.9% (11.5-14.5) Platelet Count 170x10^3/uL (140-400) Neutrophils (%) (Auto) 40% (31-73) Lymphocytes (%) (Auto) 15% (24-48) Monocytes (%) (Auto) 13% (0-9) Eosinophils (%) (Auto) 31% (0-3) Basophils (%) (Auto) 1% (0-3) Neutrophils # (Auto) 4.2x10^3uL (1.8-7.7) Lymphocytes # (Auto) 1.5x10^3/uL (1.0-4.8) Monocytes # (Auto) 1.3x10^3/uL (0.0-1.1) Eosinophils # (Auto) 3.2x10^3/uL (0.0-0.7) Basophils # (Auto) 0.1x10^3/uL (0.0-0.2) Segmented Neutrophils % 39% (35-66) Band Neutrophils % 1% (0-9) Lymphocytes % 12% (24-48) Atypical Lymphocytes % (Manual) 2% (0-0) Monocytes % 8% (0-10) Eosinophils % 35% (0-5) Basophils % 3% (0-3) Platelet Estimate Adequate (ADEQUATE) Sodium Level 137mmol/L (136-145) 139mmol/L (136-145) Potassium Level 4.2mmol/L (3.5-5.1) 4.0mmol/L (3.5-5.1) Chloride Level 99mmol/L (98-107) 101mmol/L (98-107) Carbon Dioxide Level 32mmol/L (21-32) 29mmol/L (21-32) Anion Gap 6 (6-14) 9 (6-14) Blood Urea Nitrogen 6mg/dL (8-26) 7mg/dL (8-26) Creatinine 0.6mg/dL (0.7-1.3) 0.6mg/dL (0.7-1.3) Estimated GFR (Cockcroft-Gault) 139.4 139.4 Glucose Level 93mg/dL (70-99) 84mg/dL (70-99) Calcium Level 9.8mg/dL (8.5-10.1) 9.3mg/dL (8.5-10.1) Magnesium Level 1.7mg/dL (1.8-2.4) Troponin I Quantitative < 0.017ng/mL (0.000-0.055) Triglycerides Level 36mg/dL (0-150) Cholesterol Level 118mg/dL (0-200) LDL Cholesterol, Calculated 75mg/dL (0-100) VLDL Cholesterol, Calculated 7mg/dL (0-40) HDL Cholesterol 36mg/dL (40-60) Cholesterol/HDL Ratio Thyroid Stimulating Hormone (TSH) 1.865uIU/mL (0.358-3.74) Laboratory Tests Test 12/25/16 05:10 Sodium Level 139mmol/L (136-145) Potassium Level 4.0mmol/L (3.5-5.1) Chloride Level 101mmol/L (98-107) Carbon Dioxide Level 29mmol/L (21-32) Anion Gap 9 (6-14) Blood Urea Nitrogen 7mg/dL (8-26) Creatinine 0.6mg/dL (0.7-1.3) Estimated GFR (Cockcroft-Gault) 139.4 Glucose Level 84mg/dL (70-99) Calcium Level 9.3mg/dL (8.5-10.1) Medications Current Medications Nitroglycerin (Nitrostat) 0.4 mg PRN Q5MIN PRN SL CP RATING > 1/10 Last administered on 12/23/16 16:41; Start 12/23/16 at 15:45; Stop 12/24/16 at 15:44; Status DC Acetaminophen (Tylenol) 1,000 mg 1X ONCE PO Last administered on 12/23/16 16: 53; Start 12/23/16 at 16:45; Stop 12/23/16 at 16:47; Status DC Ondansetron HCl (Zofran) 4 mg PRN Q8HRS PRN IV NAUSEA/VOMITING; Start 12/23/16 at 18:45; Stop 12/24/16 at 18:44; Status UNV Morphine Sulfate 2 mg PRN Q2HR PRN IV PAIN; Start 12/23/16 at 18:45; Stop at 14:01; Status DC Acetaminophen (Tylenol) 650 mg PRN Q4HRS PRN PO FEVER; Start 12/23/16 at 18:45; Stop 12/24/16 at 18:44; Status UNV Morphine Sulfate 4 mg 1X ONCE IV Last administered on 12/23/16 18:57; Start at 19:00; Stop 12/23/16 at 19:01; Status DC Acetaminophen (Tylenol) 650 mg PRN Q6HRS PRN PO FEVER Last administered on 04:03; Start 12/23/16 at 18:45 Ondansetron HCl (Zofran) 4 mg PRN Q6HRS PRN IV NAUSEA; Start 12/23/16 at 18:45 Enoxaparin Sodium 40 mg 40 mg DAILY SQ Last administered on 12/25/16 11:39; Start 12/24/16 at 09:00 Sodium Chloride (Iv Sodium Chloride 0.9% 1000ml Bag) 1,000 ml @ 75 mls/hr 1X ONCE IV Last administered on 12/23/16 18:56; Start 12/23/16 at 19:00; Stop at 08:19; Status DC Aspirin (John Aspirin) 325 mg 1X ONCE PO ; Start 12/23/16 at 19:00; Stop at 19:00; Status DC Aspirin (Children'S Aspirin) 81 mg DAILY PO Last administered on 12/25/16 11:39 ; Start 12/24/16 at 09:00 Hydralazine HCl (Apresoline) 10 mg PRN Q4HRS PRN IVP HYPERTENSION, SEE COMMENTS ; Start 12/23/16 at 19:00 Tramadol HCl (Ultram) 50 mg PRN Q6HRS PRN PO PAIN Last administered on 11:39; Start 12/23/16 at 19:00 Lorazepam (Ativan) 2 mg PRN Q4HRS PRN IV ANXIETY / AGITATION; Start 12/23/16 at 19:00 Albuterol/ Ipratropium (Duoneb) 3 ml RTQID NEB Last administered on 12/25/16 07 :28; Start 12/23/16 at 20:00 Albuterol Sulfate (Ventolin Neb Soln) 2.5 mg PRN Q4HRS PRN NEB SHORTNESS OF BREATH; Start 12/23/16 at 19:00 Diphenhydramine HCl (Benadryl) 25 mg PRN BID PRN PO INSOMNIA Last administered on 12/23/16 22:50; Start 12/23/16 at 22:15 Guaifenesin (Robitussin Dm) 10 ml PRN Q6HRS PRN PO COUGH Last administered on 11:38; Start 12/23/16 at 22:15 Regadenoson (Lexiscan) 0.4 mg 1X ONCE IV Last administered on 12/25/16 10:33; Start 12/25/16 at 09:30; Stop 12/25/16 at 09:31; Status DC Vitals/I & O Vital Sign - Last 24 Hours 12/24/16 12/24/16 12/24/16 12/24/16 15:15 15:25 18:21 19:59 Temp 97.5 97.7 97.5 97.7 Pulse 85 82 Resp 18 20 B/P 110/80 135/95 Pulse Ox 97 98 96 O2 Delivery Room Air Room Air Room Air Room Air 12/24/16 12/24/16 12/24/16 12/25/16 20:05 21:05 23:59 03:59 Temp 97.6 98.4 97.6 98.4 Pulse 98 108 Resp 20 20 B/P 129/81 130/74 Pulse Ox 98 94 94 O2 Delivery Room Air Room Air Room Air Room Air 12/25/16 12/25/16 12/25/16 12/25/16 07:00 07:29 08:15 11:39 Temp 97.5 97.5 Pulse 89 Resp 20 B/P 117/82 Pulse Ox 99 94 O2 Delivery Room Air Room Air Room Air Room Air 12/25/16 12/25/16 11:44 12:40 Temp 98.1 98.1 Pulse 96 Resp 20 B/P 135/86 Pulse Ox 98 O2 Delivery Room Air Room Air Intake and Output 2/4/17 2/4/17 2/5/17 15:00 23:00 07:00 Intake Total 720 ml 840 ml Output Total 900 ml 1850 ml 1300 ml Balance -180 ml -1010 ml -1300 ml VINCE SIMPSON MD Dec 25, 2016 13:38
--- NOTE | 2016-12-25 14:38 | RAD ---
APPROVED REPORT Test Type: Pharmacological Stress Nurse/Tech: Veronika Rivera R.N. Test Indications: chest pain Cardiac History: copd, smoker, Medications: see ehr Medical History: see ehr Resting ECG: SR with pacs Resting Heart Rate: 87 bpm Resting Blood Pressure: 118/79mmHg Pretest Chest Pain: Anginal equivalent Nurse/Tech Notes lungs cta, heart tones regular, good radial pulse Consent: The procedure was explained to the patient in lay terms. Informed consent was witnessed. Octaviano eout was entered into [employer]. History and Stress Test performed by Veronika Rivera R.N. Pharm. Details Pharmacologic stress testing was performed using 0.4mg per 5ml of regadenoson given intravenously ove r 7-10 seconds. Stress Symptoms No chest pain or symptoms. POST EXERCISE Reason for Termination: Infusion complete Target HR: No Max HR: 134 bpm Max Blood Pressure: 128/85mmHg Chest Pain: No. Arrhythmia: Yes. continued pacs ST Change: No. INTERPRETATION Stress EKG Conclusion: The resting EKG shows a sinus rhythm with mild nonspecific ST segment changes. The stress EKG shows no significant changes from baseline. No EKG evidence of stress-induced ischemia. Imaging Protocol IMAGE PROTOCOL: Rest Tc-99m/stress Tc-99m 1 day Rest: Stress: Viability: Radiopharm.Tc99m [id number] Sestamibi Dose10.2mCi 35mCi Duration 15min. 10min. Img Date 12/25/2016 12/25/2016 Inj-Img [id number]. 45min. Rest Admin Site:IV - Right AntecubitalAdministrator:RT Angelito (R)(N) Stress Admin Site: IV - Right AntecubitalAdministrator: RT Angelito (R)(N) STRESS DATA End Diast. Vol.71.0mlAv. Heart Rate98.0bpm End Syst. Vol.16.0mlCO Index BSA0.0L/min Myocardial Yvyj272.0gEject. Wecvshcm04.0% Stress Rates Pk. Fill Rate5.08EDV/secLVtime Pk. Fill 167.68msec Pk. Empty Rate6.31ESV/secLVtime Pk. Eject96.36msec 11/22 Pk. Fill1.42EDV/sec Stress Scores Regional WT3.00Summed WT15.00 Regional WM0.00Summed WM4.00 LV Perfusion The stress scans showed no significant defects. The rest scans showed no significant defects. Nuclear imaging showed no reversible ischemia or infarct. Wall Motion Left ventricular systolic function is normal with an ejection fraction of greater than 70%. LV Perf. Quant 17 Seg. SSS0.00 17 Seg. SRS0.00 17 Seg. SDS0.00 Stress Defect Extent (% LAD)0.00Rest Defect Extent (% LAD)0.00Rev. Defect Extent (% LAD)0.00 Stress Defect Extent (% LCX) 0.00Rest Defect Extent (% LCX)0.00Rev. Defect Extent (% LCX)0.00 Stress Defect Extent (% RCA)0.00Rest Defect Extent (% RCA)0.00Rev. Defect Extent (% RCA)0.00 Stress Defect Extent (% LINDSEY)0.00Rest Defect Extent (% LINDSEY)0.00Rev. Defect Extent (% LINDSEY)0.00 Conclusion 1. No EKG evidence of stress-induced ischemia. 2. Nuclear imaging showed no reversible ischemia or infarct. 3. Normal left ventricular systolic function with an ejection fraction of greater than 70%. 4. Low risk Lexiscan nuclear stress test.
--- NOTE | 2016-12-25 14:40 | CARD ---
APPROVED REPORT EXAM: Two-dimensional and M-mode echocardiogram with Doppler and color Doppler. Other Information Quality : AverageHR: 80bpm INDICATION Chest Pain 2D DIMENSIONS Left Atrium(2D)3.1 (1.6-4.0cm)IVSd0.9 (0.7-1.1cm) Aortic Root(2D)3.0 (2.0-3.7cm)LVDd4.3 (3.9-5.9cm) LVOT Diameter2.5 (1.8-2.4cm)PWd0.9 (0.7-1.1cm) LVDs2.6 (2.5-4.0cm)FS (%) 40.5 % SV59.7 ml M-Mode DIMENSIONS Aortic Cusp Exc1.72 (1.5-2.0cm) Aortic Valve AoV Peak Jose Luis.109.5cm/sAoV VTI16.6cm AO Peak GR.4.8mmHgLVOT VTI 13.91cm AO Mean GR.3mmHg Mitral Valve MV E Gxzduudk41.9cm/sMV DECEL GCBQ900ge MV A Dlymsdgb55.9cm/sE/A Ratio1.0 MV A Cgfovqac40jx TDI Lateral E' P. V8.84cm/sMedial E' P. V8.13cm/s E/Lateral E'9.7E/Medial E'10.6 Pulmonary Valve PV Peak Zytleoig94.6cm/s Tricuspid Valve TR P. Eaqfsabj547gq/sTR Peak Gr.48mmHg Pulmonary Vein S1 Clykxnym64.7cm/sS2 Grshekhw79.31cm/s D2 Ivstwwzx47.3cm/s LEFT VENTRICLE The left ventricle is normal size. There is normal left ventricular wall thickness. The left ventricu lar systolic function is normal and the ejection fraction is within normal range. Ejection fraction i s 60-65%. There is normal LV segmental wall motion. Transmitral Doppler flow pattern is Grade I-abnor mal relaxation pattern. No left ventricle thrombus noted on this study. There is no ventricular septa l defect visualized. There is no left ventricular aneurysm. There is no mass noted in the left ventri carmen. RIGHT VENTRICLE The right ventricle is normal size. There is normal right ventricular wall thickness. The right ventr icular systolic function is normal. ATRIA The left atrium size is normal. The right atrium size is normal. The interatrial septum is intact wit h no evidence for an atrial septal defect or patent foramen ovale as noted on 2-D or Doppler imaging. AORTIC VALVE The aortic valve is normal in structure and function. Doppler and Color Flow revealed trace aortic re gurgitation. There is no significant aortic valvular stenosis. There is no aortic valvular vegetation . MITRAL VALVE The mitral valve is normal in structure and function. There is no evidence of mitral valve prolapse. There is no mitral valve stenosis. Doppler and Color Flow revealed no mitral valve regurgitation note d. TRICUSPID VALVE The tricuspid valve is normal in structure and function. Doppler and Color Flow revealed moderate tri cuspid regurgitation. The pulmonary artery systolic pressure is estimated at 40-50 mmHg. There is no tricuspid valve prolapse or vegetation. There is no tricuspid valve stenosis. PULMONIC VALVE The pulmonary valve is normal in structure and function. Doppler and Color Flow revealed trace pulmon ic valvular regurgitation. There is no pulmonic valvular stenosis. GREAT VESSELS The aortic root is normal in size. The ascending aorta is normal in size. PERICARDIAL EFFUSION There is no pleural effusion. There is no evidence of significant pericardial effusion. Critical Notification Critical Value: No <Conclusion> The left ventricle is normal size. The left ventricular systolic function is normal and the ejection fraction is within normal range. Ejection fraction is 60-65%. There is no significant aortic valvular stenosis. Doppler and Color Flow revealed trace aortic regurgitation. Doppler and Color Flow revealed no mitral valve regurgitation noted. Doppler and Color Flow revealed moderate tricuspid regurgitation. The pulmonary artery systolic pressure is estimated at 40-50 mmHg. There is no evidence of significant pericardial effusion.
[2016-12-25 15:00] VITALS: BP 133/84
--- NOTE | 2016-12-25 17:16 | DISCH ---
DISCHARGE INSTRUCTIONS Condition on Discharge Condition on Discharge: Stable Activity After Discharge Activity Instructions for Disc: No restrictions Diet after Discharge Diet after Discharge: Regular Contacting the DR. after DC Call your doctor for: Concerns you may have ALIDA RAMIREZ MD Dec 25, 2016 17:16
[2016-12-25] MEDS ORDERED: IBUP200T43 PO (17:19)
[2016-12-25] MEDS ORDERED: ACET325T16 PO (17:19)
--- NOTE | 2016-12-25 17:35 | PDOC ---
PROGRESS NOTES Chief Complaint Chief Complaint CP ASSESSMENT AND PLAN: 1. CP: ruled out for AMS by serial enzymes/EKG. appreciate Dr Frias's input. MPI negative for ischemia. wall motion WNL, EF 70% 2. Hx heart problems NOS, with murmur: nl EF 3. Recent left rib fx: not confirmed by rib films. pain is c/w chest wall pain, L axillary line. treat symptomatically. poss (viral) pleuritis 4. COPD: no acute issues. nebs PRN 5. Tobacco use: states he quit 1 month ago 6. Multi-substance abuse: monitor for w/d sx. drug screen was neg 7. Hx seizure: ?related to (6.) 8. Prophylaxis: lovenox 9. Dispo: home today Vitals Vitals Vital Signs Date Time Temp Pulse Resp B/P Pulse Ox O2 Delivery O2 Flow Rate FiO2 12/25/16 15:04 99 Room Air 12/25/16 15:00 97.0 96 20 133/84 97.0 Physical Exam General: Alert, Oriented X3, Cooperative, No acute distress Heart: Regular rate Lungs: Clear Abdomen: Normal bowel sounds Extremities: No edema Skin: No rashes Labs LABS Laboratory Tests Test 12/25/16 05:10 Sodium Level 139mmol/L (136-145) Potassium Level 4.0mmol/L (3.5-5.1) Chloride Level 101mmol/L (98-107) Carbon Dioxide Level 29mmol/L (21-32) Anion Gap 9 (6-14) Blood Urea Nitrogen 7mg/dL (8-26) Creatinine 0.6mg/dL (0.7-1.3) Estimated GFR (Cockcroft-Gault) 139.4 Glucose Level 84mg/dL (70-99) Calcium Level 9.3mg/dL (8.5-10.1) Review of Systems Review of Systems c/o ongoing chest wall pain Comment Review of Relevant I have reviewed the following items eliceo (where applicable) has been applied. Labs Laboratory Tests Test 12/23/16 17:25 12/23/16 22:22 12/24/16 01:00 12/24/16 06:35 Urine Opiates Screen Neg (NEG) Urine Methadone Screen Neg (NEG) Urine Barbiturates Neg (NEG) Urine Phencyclidine Screen Neg (NEG) Urine Amphetamine/Methamphetamine Neg (NEG) Urine Benzodiazepines Screen Neg (NEG) Urine Cocaine Screen Neg (NEG) Urine Cannabinoids Screen Neg (NEG) Urine Ethyl Alcohol Neg (NEG) Nasal Screen MRSA (PCR) Negative (Negative) Troponin I Quantitative < 0.017ng/mL (0.000-0.055) < 0.017ng/mL (0.000-0.055) White Blood Count 10.3x10^3/uL (4.0-11.0) Red Blood Count 5.00x10^6/uL (4.30-5.70) Hemoglobin 16.0g/dL (13.0-17.5) Hematocrit 48.2% (39.0-53.0) Mean Corpuscular Volume 96fL (79-100) Mean Corpuscular Hemoglobin 32pg (25-35) Mean Corpuscular Hemoglobin Concent 33g/dL (31-37) Red Cell Distribution Width 12.9% (11.5-14.5) Platelet Count 170x10^3/uL (140-400) Neutrophils (%) (Auto) 40% (31-73) Lymphocytes (%) (Auto) 15% (24-48) Monocytes (%) (Auto) 13% (0-9) Eosinophils (%) (Auto) 31% (0-3) Basophils (%) (Auto) 1% (0-3) Neutrophils # (Auto) 4.2x10^3uL (1.8-7.7) Lymphocytes # (Auto) 1.5x10^3/uL (1.0-4.8) Monocytes # (Auto) 1.3x10^3/uL (0.0-1.1) Eosinophils # (Auto) 3.2x10^3/uL (0.0-0.7) Basophils # (Auto) 0.1x10^3/uL (0.0-0.2) Segmented Neutrophils % 39% (35-66) Band Neutrophils % 1% (0-9) Lymphocytes % 12% (24-48) Atypical Lymphocytes % (Manual) 2% (0-0) Monocytes % 8% (0-10) Eosinophils % 35% (0-5) Basophils % 3% (0-3) Platelet Estimate Adequate (ADEQUATE) Sodium Level 137mmol/L (136-145) Potassium Level 4.2mmol/L (3.5-5.1) Chloride Level 99mmol/L (98-107) Carbon Dioxide Level 32mmol/L (21-32) Anion Gap 6 (6-14) Blood Urea Nitrogen 6mg/dL (8-26) Creatinine 0.6mg/dL (0.7-1.3) Estimated GFR (Cockcroft-Gault) 139.4 Glucose Level 93mg/dL (70-99) Calcium Level 9.8mg/dL (8.5-10.1) Magnesium Level 1.7mg/dL (1.8-2.4) Triglycerides Level 36mg/dL (0-150) Cholesterol Level 118mg/dL (0-200) LDL Cholesterol, Calculated 75mg/dL (0-100) VLDL Cholesterol, Calculated 7mg/dL (0-40) HDL Cholesterol 36mg/dL (40-60) Cholesterol/HDL Ratio Thyroid Stimulating Hormone (TSH) 1.865uIU/mL (0.358-3.74) Test 12/25/16 05:10 Sodium Level 139mmol/L (136-145) Potassium Level 4.0mmol/L (3.5-5.1) Chloride Level 101mmol/L (98-107) Carbon Dioxide Level 29mmol/L (21-32) Anion Gap 9 (6-14) Blood Urea Nitrogen 7mg/dL (8-26) Creatinine 0.6mg/dL (0.7-1.3) Estimated GFR (Cockcroft-Gault) 139.4 Glucose Level 84mg/dL (70-99) Calcium Level 9.3mg/dL (8.5-10.1) Laboratory Tests Test 12/25/16 05:10 Sodium Level 139mmol/L (136-145) Potassium Level 4.0mmol/L (3.5-5.1) Chloride Level 101mmol/L (98-107) Carbon Dioxide Level 29mmol/L (21-32) Anion Gap 9 (6-14) Blood Urea Nitrogen 7mg/dL (8-26) Creatinine 0.6mg/dL (0.7-1.3) Estimated GFR (Cockcroft-Gault) 139.4 Glucose Level 84mg/dL (70-99) Calcium Level 9.3mg/dL (8.5-10.1) Medications Current Medications Nitroglycerin (Nitrostat) 0.4 mg PRN Q5MIN PRN SL CP RATING > 1/10 Last administered on 12/23/16 16:41; Start 12/23/16 at 15:45; Stop 12/24/16 at 15:44; Status DC Acetaminophen (Tylenol) 1,000 mg 1X ONCE PO Last administered on 12/23/16 16: 53; Start 12/23/16 at 16:45; Stop 12/23/16 at 16:47; Status DC Ondansetron HCl (Zofran) 4 mg PRN Q8HRS PRN IV NAUSEA/VOMITING; Start 12/23/16 at 18:45; Stop 12/24/16 at 18:44; Status UNV Morphine Sulfate 2 mg PRN Q2HR PRN IV PAIN; Start 12/23/16 at 18:45; Stop at 14:01; Status DC Acetaminophen (Tylenol) 650 mg PRN Q4HRS PRN PO FEVER; Start 12/23/16 at 18:45; Stop 12/24/16 at 18:44; Status UNV Morphine Sulfate 4 mg 1X ONCE IV Last administered on 12/23/16 18:57; Start at 19:00; Stop 12/23/16 at 19:01; Status DC Acetaminophen (Tylenol) 650 mg PRN Q6HRS PRN PO FEVER Last administered on 04:03; Start 12/23/16 at 18:45 Ondansetron HCl (Zofran) 4 mg PRN Q6HRS PRN IV NAUSEA; Start 12/23/16 at 18:45 Enoxaparin Sodium 40 mg 40 mg DAILY SQ Last administered on 12/25/16 11:39; Start 12/24/16 at 09:00 Sodium Chloride (Iv Sodium Chloride 0.9% 1000ml Bag) 1,000 ml @ 75 mls/hr 1X ONCE IV Last administered on 12/23/16 18:56; Start 12/23/16 at 19:00; Stop at 08:19; Status DC Aspirin (John Aspirin) 325 mg 1X ONCE PO ; Start 12/23/16 at 19:00; Stop at 19:00; Status DC Aspirin (Children'S Aspirin) 81 mg DAILY PO Last administered on 12/25/16 11:39 ; Start 12/24/16 at 09:00 Hydralazine HCl (Apresoline) 10 mg PRN Q4HRS PRN IVP HYPERTENSION, SEE COMMENTS ; Start 12/23/16 at 19:00 Tramadol HCl (Ultram) 50 mg PRN Q6HRS PRN PO PAIN Last administered on 11:39; Start 12/23/16 at 19:00 Lorazepam (Ativan) 2 mg PRN Q4HRS PRN IV ANXIETY / AGITATION; Start 12/23/16 at 19:00 Albuterol/ Ipratropium (Duoneb) 3 ml RTQID NEB Last administered on 12/25/16 15 :03; Start 12/23/16 at 20:00 Albuterol Sulfate (Ventolin Neb Soln) 2.5 mg PRN Q4HRS PRN NEB SHORTNESS OF BREATH; Start 12/23/16 at 19:00 Diphenhydramine HCl (Benadryl) 25 mg PRN BID PRN PO INSOMNIA Last administered on 12/23/16 22:50; Start 12/23/16 at 22:15 Guaifenesin (Robitussin Dm) 10 ml PRN Q6HRS PRN PO COUGH Last administered on 11:38; Start 12/23/16 at 22:15 Regadenoson (Lexiscan) 0.4 mg 1X ONCE IV Last administered on 12/25/16 10:33; Start 12/25/16 at 09:30; Stop 12/25/16 at 09:31; Status DC Vitals/I & O Vital Sign - Last 24 Hours 12/24/16 12/24/16 12/24/16 12/24/16 18:21 19:59 20:05 21:05 Temp 97.7 97.7 Pulse 82 Resp 20 B/P 135/95 Pulse Ox 96 98 O2 Delivery Room Air Room Air Room Air Room Air 12/24/16 12/25/16 12/25/16 12/25/16 23:59 03:59 07:00 07:29 Temp 97.6 98.4 97.5 97.6 98.4 97.5 Pulse 98 108 89 Resp 20 20 20 B/P 129/81 130/74 117/82 Pulse Ox 94 94 99 94 O2 Delivery Room Air Room Air Room Air Room Air 12/25/16 12/25/16 12/25/16 12/25/16 08:15 11:39 11:44 12:40 Temp 98.1 98.1 Pulse 96 Resp 20 B/P 135/86 Pulse Ox 98 O2 Delivery Room Air Room Air Room Air Room Air 12/25/16 12/25/16 15:00 15:04 Temp 97.0 97.0 Pulse 96 Resp 20 B/P 133/84 Pulse Ox 97 99 O2 Delivery Room Air Room Air Intake and Output 12/24/16 12/24/16 12/25/16 15:00 23:00 07:00 Intake Total 720 ml 840 ml Output Total 900 ml 1850 ml 1300 ml Balance -180 ml -1010 ml -1300 ml ALIDA RAMIREZ MD Dec 25, 2016 17:35
--- NOTE | 2016-12-25 23:33 | DS ---
DATE OF DISCHARGE: 12/25/2016 CHIEF COMPLAINT: Chest pain. HOSPITAL COURSE: The patient is a 56-year-old gentleman who presented to the Emergency Room with left-sided chest pain clearly secondary to chest wall abnormality. Nevertheless, he was admitted for chest pain, rule out. This was accomplished with serial enzymes and EKGs. Cardiology was involved as well and MPI was negative, also showing normal EF. He does have a history of some type of heart problems with appreciable murmur. No abnormalities, however, were found. Chest wall pain may have been secondary to left rib fractures which he apparently sustained recently. Rib films, however, did not demonstrate any acute fracture. Suspicion was for pneumonitis given viral URI symptoms. He was given pain medications including ibuprofen and Tylenol. PHYSICAL EXAMINATION: Please see note from same day. DISCHARGE DISPOSITION: To home. DISCHARGE CONDITION: Improved. DISCHARGE DIAGNOSES: Chest wall pain, question pneumonitis versus hip fracture. DISCHARGE MEDICATIONS: Please refer to MAR. DISCHARGE INSTRUCTIONS: The patient should follow up with PCP. ALIDA RAMIREZ MD DR: [email or web address]/nts JOB#: [id number] / [id number] JOHN
== END 2016-12-25 18:45 | disposition home or self-care (01) | DRG 205 ==
LOC: ER 15:16 → 5 SOUTH 18:58
PROVIDERS: ADMIT Internal Medicine; ATTEND Internal Medicine
DX: S22.32XA Fracture of one rib, left side, initial encounter for closed fracture (principal); J18.9 Pneumonia, unspecified organism; E87.1 Hypo-osmolality and hyponatremia; R07.89 Other chest pain; D72.829 Elevated white blood cell count, unspecified; E87.8 Other disorders of electrolyte and fluid balance, not elsewhere classified; F17.200 Nicotine dependence, unspecified, uncomplicated; I10 Essential (primary) hypertension; J44.9 Chronic obstructive pulmonary disease, unspecified; F41.9 Anxiety disorder, unspecified; R56.9 Unspecified convulsions; Z88.0 Allergy status to penicillin; Z82.49 Family history of ischemic heart disease and other diseases of the circulatory system; Z88.5 Allergy status to narcotic agent; R01.1 Cardiac murmur, unspecified
CPT/HCPCS: 36415; 71020; 71100; 78452; 80048; 80061; 82553; 83735; 83880; 84443; 84484; 85007; 85027; 87641; 93005; 93017; 93306; 94250; 94640; 94760; 96361; 96374; 96375; 96376; A9500; G0481; J1650; J2270; J2785; J7030; J7620; Q0163; 99285-25